=== PATIENT | male | born 1955 | race American Indian/Alaskan Native ===

== ENCOUNTER 2019-07-30 15:50 | Emergency (ER) | payer MEDICARE ==
--- NOTE | 2019-07-30 16:13 | Event Note ---
ED Screening Note ED Screening Note: epigastric abd pain described as cramping that began today +nausea no vomiting or diarrhea normal BM today no fever PMHx DM, HTN allergy: atenolol This initial assessment/diagnostic orders/clinical plan/treatment(s) is/are subject to change based on patients health status, clinical progression and re- assessment by fellow clinical providers in the ED. Further treatment and workup at subsequent clinical providers discretion. Patient/guardian urged not to elope from the ED as their condition may be serious if not clinically assessed and managed. Initial orders include: labs
[2019-07-30 16:35] LABS: Basophils # (Auto) 0.1 K/mm3 (0.0-0.1); Basophils % (Auto) 1.6 % (0.0-1.8); Eosinophils # (Auto) 0.3 K/mm3 (0.0-0.4); Eosinophils % (Auto) 5.8 % (0.0-4.3); Hemoglobin 14.2 gm/dl (11.8-15.2); Lymphocytes # (Auto) 1.3 K/mm3 (1.2-5.4); Lymphocytes % (Auto) 22.3 % (13.4-35.0); Mean Corpuscular HGB Conc 34 % (32-34); Mean Corpuscular Volume 92 fl (84-94); Monocytes # (Auto) 0.4 K/mm3 (0.0-0.8); Monocytes % (Auto) 6.9 % (0.0-7.3); Platelet Count 267 K/mm3 (140-440); Red Blood Count 4.57 M/mm3 (3.65-5.03); Red Cell Distribution Width 13.4 % (13.2-15.2)
[2019-07-30 16:52] VITALS: BP 195/83
[2019-07-30 16:52] LABS: Albumin 4.2 g/dL (3.9-5); Calcium 9.4 mg/dL (8.4-10.2)
--- NOTE | 2019-07-30 17:14 | Emergency Department Report ---
ED General Adult HPI - General Chief complaint: Abdominal Pain Stated complaint: ABD PAIN W/CRAMPING Time Seen by Provider: 07/30/19 16:12 Source: patient, family, RN notes reviewed Mode of arrival: Ambulatory Limitations: No Limitations - History of Present Illness Initial comments: This is a pleasant 63-year-old gentleman. This patient is not known to this provider previously. His outpatient physicians include the following doctors: Estella Boston and Adeel Past medical history includes hypertension, diabetes, obesity. He reports that he typically takes labetalol. He reports that he missed his dose this afternoon. He reports being in his usual state of health today when he developed epigastric pain that moves down to his periumbilical and bilateral flank abdominal region. This is described as cramping. There is nausea but no vomiting. He denies diarrhea. Makes no complaint of testicular pain, or urinary symptoms. He denies chest pain and new or different exertional shortness of breath. His symptoms are now resolved. He indicates that he has no complaints at this time. He did indicate that he felt his abdominal region had become distended, and this is now resolved. He may have a history of renal insufficiency, but he is not certain. -: Sudden Location: abdomen Radiation: abdomen Severity scale (0 -10): 0 Consistency: now resolved Improves with: none Worsens with: none - Related Data Allergies Allergy/AdvReac Type Severity Reaction Status Date / Time atenolol AdvReac Dizziness Verified 07/30/19 16:01 ED Review of Systems ROS: Stated complaint: ABD PAIN W/CRAMPING Other details as noted in HPI Constitutional: denies: fever Eyes: denies: eye discharge ENT: denies: congestion Respiratory: denies: wheezing Cardiovascular: denies: syncope Gastrointestinal: abdominal pain, nausea Genitourinary: denies: dysuria, testicular pain Musculoskeletal: denies: back pain Neurological: denies: weakness Hematological/Lymphatic: denies: easy bleeding ED Past Medical Hx - Past Medical History Hx Hypertension: Yes Hx Diabetes: Yes - Surgical History Additional Surgical History: ASIA KNEE SURGERY - Social History Smoking Status: Never Smoker Substance Use Type: Alcohol ED Physical Exam - General Limitations: No Limitations General appearance: alert, in no apparent distress - Head Head exam: Present: atraumatic, normocephalic - Eye Eye exam: Present: normal appearance, EOMI. Absent: nystagmus - ENT ENT exam: Present: normal exam, normal orophraynx, mucous membranes moist, normal external ear exam - Neck Neck exam: Present: normal inspection, full ROM. Absent: tenderness, meningismus - Respiratory Respiratory exam: Present: normal lung sounds bilaterally. Absent: respiratory distress - Cardiovascular Cardiovascular Exam: Present: regular rate, normal rhythm, normal heart sounds. Absent: bradycardia, tachycardia, irregular rhythm, systolic murmur, diastolic murmur, rubs, gallop - GI/Abdominal GI/Abdominal exam: Present: soft. Absent: distended, tenderness, guarding, rebound, rigid, pulsatile mass - Rectal Rectal exam: Present: deferred - Extremities Exam Extremities exam: Present: normal inspection ( 2+ femoral pulses noted in the bilateral femoral region. Bowling Teacher by nurse Siomara Barillas), full ROM, other (2+ pulses noted in the bilateral upper, lower extremities. There is no long bone tenderness. Musculoskeletal compartments are soft. The pelvis is stable.). Absent: pedal edema, joint swelling, calf tenderness - Back Exam Back exam: Present: normal inspection, full ROM. Absent: tenderness, CVA tenderness (R), CVA tenderness (L), paraspinal tenderness, vertebral tenderness - Neurological Exam Neurological exam: Present: alert, oriented X3, normal gait, other (there is no facial droop. The tongue is midline. Extraocular movements are intact bilaterally. There is 5 out of 5 strength in 4 extremities. Sensation is intact to light touch in 4 extremities.). Absent: motor sensory deficit - Psychiatric Psychiatric exam: Present: normal affect, normal mood - Skin Skin exam: Present: warm, dry, intact, normal color. Absent: rash ED Course Vital Signs 07/30/19 07/30/19 15:59 16:48 Temperature 98.1 F 98.4 F Pulse Rate 82 85 Respiratory 17 20 Rate Blood Pressure 198/85 Blood Pressure 195/83 [Left] O2 Sat by Pulse 97 99 Oximetry - Reevaluation(s) Reevaluation #1: 07/30/19 17:17 The patient indicated he did not require refills on his medication ED Medical Decision Making - Lab Data Result diagrams: 07/30/19 16:19 07/30/19 16:19 Vital Signs 07/30/19 07/30/19 15:59 16:48 Temperature 98.1 F 98.4 F Pulse Rate 82 85 Respiratory 17 20 Rate Blood Pressure 198/85 Blood Pressure 195/83 [Left] O2 Sat by Pulse 97 99 Oximetry Lab Results 07/30/19 07/30/19 07/30/19 Range/Units 16:19 16:19 16:59 WBC 6.0 (4.5-11.0) K/mm3 RBC 4.57 (3.65-5.03) M/mm3 Hgb 14.2 (11.8-15.2) gm/dl Hct 42.0 (35.5-45.6) % MCV 92 (84-94) fl MCH 31 (28-32) pg MCHC 34 (32-34) % RDW 13.4 (13.2-15.2) % Plt Count 267 (140-440) K/mm3 Lymph % (Auto) 22.3 (13.4-35.0) % [place] % (Auto) 6.9 (0.0-7.3) % Eos % (Auto) 5.8 H (0.0-4.3) % Baso % (Auto) 1.6 (0.0-1.8) % Lymph # 1.3 (1.2-5.4) K/mm3 [place] # 0.4 (0.0-0.8) K/mm3 Eos # 0.3 (0.0-0.4) K/mm3 Baso # 0.1 (0.0-0.1) K/mm3 Seg Neutrophils % 63.4 (40.0-70.0) % Seg Neutrophils # 3.8 (1.8-7.7) K/mm3 Sodium 139 (137-145) mmol/L Potassium 4.8 (3.6-5.0) mmol/L Chloride 101.1 (98-107) mmol/L Carbon Dioxide 23 (22-30) mmol/L Anion Gap 20 mmol/L BUN 16 (9-20) mg/dL Creatinine 1.7 H (0.8-1.5) mg/dL Estimated GFR 41 ml/min BUN/Creatinine Ratio 9 % Glucose 286 H (75-100) mg/dL POC Glucose 253 H (70-105) Calcium 9.4 (8.4-10.2) mg/dL Total Bilirubin 0.30 (0.1-1.2) mg/dL AST 23 (5-40) units/L ALT 24 (7-56) units/L Alkaline Phosphatase 59 (35-129) units/L Total Protein 7.8 (6.3-8.2) g/dL Albumin 4.2 (3.9-5) g/dL Albumin/Globulin Ratio 1.2 % Lipase 35 (13-60) units/L - Medical Decision Making Differential diagnosis, including not limited to: GERD, gastritis, hiatal hernia, obstruction, constipation, AAA, arrhythmia, acute coronary syndrome Assessment and plan: 63-year-old gentleman with resolved epigastric abdominal pain, found to be hypertensive. He is otherwise afebrile with reassuring vital signs, clinically sober at this time and exhibits decision-making capacity. Extensive discussion have with patient and . We recommended initiation of IV fluids, intravenous labetalol, EKG, noncontrast CT scan of the abdomen pelvis, and further clinical monitoring. The patient is declining all of these interventions. The patient states that he believes he has food poisoning, and he states that he is going to go home. Counseled the patient that without a complete workup and further evaluation, , disability, paralysis, loss of quality of life may result. The patient exhibits decision-making capacity, and further endorses that he would like to leave at this point in time AGAINST MEDICAL ADVICE. The patient is free from distracting injury, and sober at this time. This conversation was witnessed by his , myself, and nurse Siomara Barillas. The patient was counseled that he may return to the emergency room right away if and when he changes his mind. Critical care attestation.: If time is entered above; I have spent that time in minutes in the direct care of this critically ill patient, excluding procedure time. ED Disposition Clinical Impression: History of abdominal pain, Hypertension, Renal insufficiency Disposition: [id number] LEFT AGAINST MED ADVICE Is pt being admited?: No Does the pt Need Aspirin: No Condition: Undetermined Additional Instructions: As we discussed, you have left the hospital/emergency room AGAINST MEDICAL ADVICE. By leaving, you risked , disability, paralysis, permanent loss of quality of life. The ER is open 24 hours a day, 7 days a week. It never closes. Please return to the emergency room right away if and when you change your mind. If you decide not to return to the emergency room, please follow-up with the listed physician referrals as soon as possible. Avoid consumption of Motrin, ibuprofen, Naprosyn, Aleve. Patient was found to have hypertension in the emergency room. Recommend following up as soon as possible with her outpatient primary care doctor for your hypertension. Long-term complications of hypertension includes stroke, disability, loss of quality of life, heart attack, paralysis. Referrals: PRIMARY CARE, [Referring] - 3-5 Days
== END 2019-07-30 16:59 | disposition left against medical advice (07) ==
LOC: ED 15:50
DX: N28.9 Disorder of kidney and ureter, unspecified (principal); I10 Essential (primary) hypertension; E11.9 Type 2 diabetes mellitus without complications; Z98.890 Other specified postprocedural states; Z88.8 Allergy status to other drugs, medicaments and biological substances
CPT/HCPCS: 36415; 80053; 82962; 83690; 85025; 99283